=== PATIENT | female | born 1975 | race Caucasian/White ===

== ENCOUNTER 2017-10-17 18:22 | Emergency (ER) | payer OTHER ==
[~2017-10-17] VITALS: Ht 154.9 cm; Wt 92.0 kg
[2017-10-17 20:23] LABS: APPEARANCE SL.HAZY ((CLEAR)); BILIRUBIN NEGATIVE; BLOOD SMALL; COLOR YELLOW ((YELLOW)); GLUCOSE (STRIP) NEGATIVE; KETONES NEGATIVE; LEUKOCYTES MODERATE; NITRITE POSITIVE; PROTEIN (STRIP) NEGATIVE; SPECIFIC GRAVITY 1.011 (1.000-1.030); UROBILINOGEN 0.2 MG/DL (0.2-1.0)
[2017-10-17 20:28] LABS: BACTERIA 2+ /HPF; EPITHELIAL CELLS RARE /HPF; MUCUS TRACE /LPF; RED BLOOD CELLS 0-5 /HPF (0-5); UCUL ADDED? YES; WHITE BLOOD CELLS TNTC /HPF (0-5)
[2017-10-17 21:15] LABS: SOURCE SWAB
[2017-10-17] MEDS ORDERED: FLAGYL500 MG PO (21:20)
[2017-10-17] MEDS ORDERED: BACTRIM,SEPT1 TABLET PO (21:20)
[2017-10-17] MEDS ORDERED: BENZONATATE100 MG PO (21:43)
[2017-10-17 21:47] VITALS: BP 131/90
== END 2017-10-17 21:57 | disposition home or self-care (01) ==
LOC: EME 18:22
PROVIDERS: Physician Assistant
DX: N39.0 Urinary tract infection, site not specified (principal); N76.0 Acute vaginitis; B96.89 Other specified bacterial agents as the cause of diseases classified elsewhere; F17.200 Nicotine dependence, unspecified, uncomplicated
CPT/HCPCS: 81003; 87077; 87086; 87186; 87210; 87491; 87591; 99281; 99284